=== PATIENT | male | born 1970 | race Hispanic/Latino ===

== ENCOUNTER 2018-11-16 19:56 | Emergency (ER) | payer BC ==
--- NOTE | 2018-11-16 21:48 | ED PDOC ---
HPI: Skin/Bite Injury Time Seen by Provider: 11/16/18 21:30 Chief Complaint (Provider): Finger laceration History Per: Patient History/Exam Limitations: no limitations Onset/Duration Of Symptoms: Hrs Current Symptoms Are (Timing): Still Present Location Of Injury: Right: Hand (2nd digit) Quality Of Symptoms: Painful Additional History Per: Patient Additional Complaint(s): 48yo male, otherwise well, comes to ER for evaluation of laceration to distal tip of his rigt 2nd digit. Patient states he was cleaning the exhaust vent over his kitchen stove when the metal filter cut his finger. He reports he immediately washed the wound, applied a dressing and came to the ER. Patient states his last tetanus vaccination was within the last 10 years, but is unsure of the exact time. He otherwise offers no additional medical complaints. PMD: None provided Past Medical History Reviewed: Historical Data, Nursing Documentation, Vital Signs Vital Signs: Last Vital Signs Temp 98.1 F 11/16/18 21:13 Pulse 73 11/16/18 21:13 Resp 18 11/16/18 21:13 BP 150/86 11/16/18 21:13 Pulse Ox 96 11/16/18 21:13 - Medical History PMH: No Chronic Diseases - Surgical History Surgical History: No Surg Hx - Family History Family History: States: No Known Family Hx - Allergies Allergies/Adverse Reactions: Allergies Allergy/AdvReac Type Severity Reaction Status Date / Time Sulfa (Sulfonamide Allergy RASH Verified 11/16/18 21:13 Antibiotics) Review of Systems ROS Statement: Except As Marked, All Systems Reviewed And Found Negative Skin: Positive for: Other (laceration to right 2nd digit) Physical Exam - Reviewed Nursing Documentation Reviewed: Yes Vital Signs Reviewed: Yes - Physical Exam Comments: GENERAL APPEARANCE: Patient is awake, alert, oriented x 3, in no acute distress. SKIN: Warm, dry; (-) cyanosis. CHEST AND RESPIRATORY: (-) chest wall tenderness. Lungs: (-) rales, (-) rhonchi, (-) wheezes; breath sounds equal bilaterally. HEART AND CARDIOVASCULAR: (-) irregularity; (-) murmur, (-) gallop. EXTREMITIES: (+) Partial avulsion laceration to distal tip of right 2nd digit; (+) mild tenderness to palpation, (+)FROM, flexion and extension intact of DIP, sensation intact, Flap has pallor, however surrounding area is pink and susu able. Distal sensations are intact. RP 2+. NEURO AND PSYCH: Mental status as above. - ECG O2 Sat by Pulse Oximetry: 96 (RA) Pulse Ox Interpretation: Normal Medical Decision Making Medical Decision Makinyo male with laceration Plan: -- Laceration repair -- Adacel 0.5ml IM -- applied xeroform, cling wrap and RN applied aluminum splint for support Discussed results, diagnosis, treatment, wound care, return precautions and f/u with pt who is understanding, in agreement and stable for dc Scribe Attestation: Documented by Alexa Lindsey, acting as a scribe for MALKA Ponce. Provider Scribe Attestation: All medical record entries made by the Scribe were at my direction and personally dictated by me. I have reviewed the chart and agree that the record accurately reflects my personal performance of the history, physical exam, medical decision making, and the department course for this patient. I have also personally directed, reviewed, and agree with the discharge instructions and disposition. Disposition - Clinical Impression Clinical Impression: Avulsion of fingertip, Laceration of finger - Patient ED Disposition Is Patient to be Admitted: No Counseled Patient/Family Regarding: Studies Performed, Diagnosis, Need For Followup - Disposition Referrals: your, doctor [Other] Disposition: Routine/Home Disposition Time: 22:23 Condition: STABLE Additional Instructions: Return to ED for new or worsening symptoms, fever>100.4, numbness or tingling, increase redness or swelling, unable to bend finger. Follow up with your primary doctor in 1-2 days. Keep dressing on for 24 hours. Keep wound clean, dry and covered. Apply neosporin/bacitracin 1-2 times a day. Instructions: Wound Care (DC), Common Finger Injuries (DC) Print Language: TURKISH - POA Present On Arrival: None
[2018-11-16] MEDS ORDERED: Tdap Vaccine 0.5 ml Vial (10-64 yrs) IM ONE (22:29)
[2018-11-16] MEDS: Tdap Vaccine 0.5 ml Vial (10-64 yrs) IM ONE (22:30)
[2018-11-16 22:39] VITALS: BP 125/76; PULSE 66; RESP 16; TEMP 98
[2018-11-17 12:39] VITALS: O2SAT 96
== END 2018-11-16 22:39 | disposition home or self-care (01) ==
LOC: H.ER 19:56
DX: S61.210A Laceration without foreign body of right index finger without damage to nail, initial encounter (principal); W26.8XXA Contact with other sharp object(s), not elsewhere classified, initial encounter; Y92.89 Other specified places as the place of occurrence of the external cause; Z88.2 Allergy status to sulfonamides